=== PATIENT | female | born 1970 | race Caucasian/White ===

== ENCOUNTER 2022-06-25 08:07 | Day surgery (SDC) | payer OTHER ==
[~2022-06-25 08:07] MED LIST: Acetaminophen 500 MG Tab PO ONE; Bupivacaine 0.5%/EPINEPHrine 1:200,000 50 ML MDV ONE; Indocyanine Green 25 MG SDV INJECT ONE; Lidocaine 1% with EPINEPHrine 1:100,000 50 ML MDV ONE; Sodium Chloride 0.9% 1,000 ML IV SCH; cefTRIAXone 2 GM in Sodium Chloride 0.9% 50 ML IV ONE; metroNIDAZOLE/Normal Saline 500 MG in Premix Bag 1 BAG IV ONE
[2022-06-25] MEDS ORDERED: Glycopyrrolate 0.2 MG/ML 5 ML MDV ONE (09:34)
[2022-06-25] MEDS ORDERED: Succinylcholine 200 MG/10 ML MDV ONE (09:34)
[2022-06-25] MEDS ORDERED: Propofol 200 MG/20 ML SDV ONE (09:34)
[2022-06-25] MEDS ORDERED: Dexamethasone 4 MG/ML SDV ONE (09:34)
[2022-06-25] MEDS ORDERED: Rocuronium 50 MG/5 ML Vial ONE (09:34)
[2022-06-25] MEDS ORDERED: Ondansetron 4 MG/2 ML SDV ONE (09:34)
[2022-06-25] MEDS ORDERED: Neostigmine Methylsulfate 1 MG/ML 5 ML Syringe ONE (09:34)
[2022-06-25] MEDS ORDERED: Lactated Ringers 1,000 ML ONE (11:52)
[2022-06-25] MEDS ORDERED: Acetaminophen/HYDROcodone 325-5 MG Tab PO PRN (13:14)
[2022-06-25] MEDS ORDERED: Ondansetron 4 MG/2 ML SDV IVPUSH PRN (13:15)
== END 2022-06-25 15:23 | disposition home or self-care (01) ==
LOC: JP.SDS 08:07
PROVIDERS: ATTEND Student in an Organized Health Care Education/Training Program
DX: K80.10 Calculus of gallbladder with chronic cholecystitis without obstruction (principal); Z98.890 Other specified postprocedural states; Z79.899 Other long term (current) drug therapy; Z88.2 Allergy status to sulfonamides; Z88.5 Allergy status to narcotic agent
CPT/HCPCS: 47562; 93005; A9270; J0330; J0696; J1100; J2405; J2704; J2710; J3490; J7030; J7120; 88304